=== PATIENT | male | born 2000 | race Caucasian/White ===

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

== ENCOUNTER 2025-02-05 18:17 | Emergency (ER) | payer OTHER ==
[~2025-02-05] VITALS: Ht 167.6 cm; Wt 63.5 kg
[2025-02-05 18:31] VITALS: BP 113/66; TEMP 98; O2SAT 98
[2025-02-05] MEDS ORDERED: DOXY100C2 PO (18:45)
[2025-02-05] MEDS ORDERED: LIDOCAINE /MPF 1% VIAL 5 ML VIAL ONE (18:47)
[2025-02-05] MEDS ORDERED: CEFTRIAXONE 500 MG VIAL ONE (18:47)
[2025-02-05] MEDS ORDERED: DOXYCYCLINE HYCLATE (100 MG) 100 MG TABLET ONE (18:48)
[2025-02-05] MEDS: CEFTRIAXONE 500 MG VIAL IM ONE (18:56)
[2025-02-05] MEDS: DOXYCYCLINE HYCLATE (100 MG) 100 MG TABLET PO ONE (18:57)
== END 2025-02-05 19:00 | disposition home or self-care (01) ==
LOC: ER 18:20
DX: N34.2 Other urethritis (principal); Z59.00 Homelessness unspecified
CPT/HCPCS: 99283; 96372; J0696; J3490